=== PATIENT | male | born 1945 | race Caucasian/White ===

== ENCOUNTER 2021-09-03 11:08 | Emergency (ER) | payer OTHER ==
[~2021-09-03] VITALS: Ht 177.8 cm; Wt 100.7 kg
[~2021-09-03 11:08] MED LIST: HYZAAR 100-12.1 EACH PO; METFORMIN HCL1000 M1 PO; OSTERA TABLET1 EACH PO; PROSCAR5 MG PO; TAMS0.4C PO
[2021-09-03] MEDS ORDERED: PEPCID AC20 MG PO (14:58)
[2021-09-03] MEDS ORDERED: FLAGYL500MG PO (14:58)
[2021-09-03] MEDS ORDERED: INTESTINEX680 M1 PO (14:58)
[2021-09-03] MEDS ORDERED: CIPRO500 MG PO (14:58)
[2021-09-03] MEDS ORDERED: LEVSIN/SL0.125 MG PO (14:58)
[2021-09-03] MEDS ORDERED: CELEBREX100 MG PO (14:58)
== END 2021-09-03 16:11 | disposition home or self-care (01) ==
LOC: ER 11:08
DX: K57.32 Diverticulitis of large intestine without perforation or abscess without bleeding (principal); R10.84 Generalized abdominal pain